=== PATIENT | female | born 1975 | race Caucasian/White ===

== ENCOUNTER → 2016-09-21 | Outpatient (CLI) | payer OTHER ==
[~2016-09-21] MED LIST: CHOL20002 PO; MULT-236 PO; TERBINAFINE PO
== END | disposition home or self-care (01) ==
LOC: LAB 17:03
PROVIDERS: ATTEND Obstetrics & Gynecology
DX: Z01.818 Encounter for other preprocedural examination (principal)

== ENCOUNTER 2016-09-23 05:46 | Inpatient (IN) | payer OTHER ==
[2016-09-23] VITALS (16 sets, daily range): BP systolic 84–123; BP diastolic 47–69; PULSE 64–91; RESP 15–22; Ht 154.9 cm; Wt 73.6 kg
[~2016-09-23] VITALS: Ht 154.9 cm; Wt 73.6 kg
--- NOTE | 2016-09-23 06:56 | PREOPHP ---
DATE OF ADMISSION: 09/23/2016 HISTORY OF PRESENT ILLNESS: This is a 41-year-old lady, 4, para 2 with 1 ectopic and 1 spon taneous . Her last normal menstrual period was a few days prior to admission. She was admi tted for D and C, hysteroscopy, possible suction curettage, exploratory laparotomy, and myomectomy. This patient complains of very heavy menstrual period associated with blood clots for the last few months and getting worse up to the time of admission. The uterus showed endometrial thickening. Sh berhane also has a fibroid and wanted to have this fibroid removed. The procedures were explained to the patient, and she understood everything totally. The risks, benefits, and alternatives were discusse d with her as well. PAST PERSONAL HISTORY: No history of diabetes, TB, asthma. ALLERGIES: NO ALLERGIES. SOCIAL HISTORY: The patient does not smoke. She does not drink. MEDICATIONS: She takes vitamins. GYNECOLOGIC HISTORY: She had menarche at the age of 11, every 28 days interval, 3 to 4 days duratio n, and moderate in amount. FAMILY HISTORY: Father has diabetes. She is 4, para 2 with 2 normal deliveries and 1 ectop ic . PAST SURGICAL HISTORY: She had a cyst removed on the left breast in 1993 and 1995. She had a gallb ladder surgery in 2011. She had an ectopic in 2008. REVIEW OF SYSTEMS: CARDIOVASCULAR: No chest pains. RESPIRATORY: No cough. GASTROINTESTINAL: No diarrhea, no vomiting. GENITOURINARY: No dysuria. PHYSICAL EXAMINATION: GENERAL: Reveals a conscious coherent lady and in no acute distress. VITAL SIGNS: Her blood pressure 120/80, pulse rate 80 per minute, respirations 16 per minute. BREASTS, HEART, AND LUNGS: Within normal limits. ABDOMEN: Soft. No organomegaly. PELVIC: Revealed the cervix to be firm, uterus about 12 week size, and adnexa were negative for mas ses. RECTAL: Confirmed the pelvic findings. EXTREMITIES: No pedal edema. ADMITTING DIAGNOSES: 1. Menorrhagia. 2. Chronic pelvic pain. 3. Fibroid uterus, rule out endometrial hyperplasia. PLAN: The patient was planned to have the above procedure. Dictated By: PEREZ COURTNEY/ANGIE Conf#: [id number] DID#: [id number]
[2016-09-23] MEDS ORDERED: VASOPRESSIN 20 UNITS INJ ONE (07:15)
[2016-09-23] MEDS ORDERED: PROPOFOL 20 ML ONE (07:30)
[2016-09-23] MEDS ORDERED: ROCURONIUM 50 MG INJ ONE (07:30)
[2016-09-23] MEDS ORDERED: FENTAnyl 50 MCG/ML VIAL ONE (07:30)
[2016-09-23] MEDS ORDERED: MIDAZOLAM 1 MG/ML 2 ML INJ ONE ×2 (07:30→08:43)
[2016-09-23] MEDS ORDERED: morphine SULFATE/PF (10 MG/10 ML) INJ ONE (07:30)
[2016-09-23] MEDS ORDERED: CEFAZOLIN 1 GM INJ ONE (07:41)
[2016-09-23] MEDS ORDERED: PHENYLephrine (100 MCG/ML) 5ML SYG ONE ×2 (08:23→09:03)
[2016-09-23] MEDS ORDERED: ACETAMINOPHEN 1000MG/100ML IV 100 ML ONE (08:24)
[2016-09-23] MEDS ORDERED: KETOROLAC 30 MG INJ ONE (08:24)
[2016-09-23] MEDS ORDERED: DEXAMETHASONE 4 MG/ML 1 ML INJ ONE (08:24)
[2016-09-23] MEDS ORDERED: METOCLOPRAMIDE 10 MG INJ ONE (08:24)
[2016-09-23] MEDS ORDERED: ONDANSETRON 4 MG INJ ONE (08:24)
[2016-09-23] MEDS ORDERED: HYDROmorphONE 1 MG/ML SYG IV PRN ×2 (08:30)
[2016-09-23] MEDS ORDERED: morphine 2 MG INJ IV PRN (08:30)
[2016-09-23] MEDS ORDERED: NALOXONE (0.4 MG/ML) INJ IV PRN (08:30)
[2016-09-23] MEDS ORDERED: morphine 4 MG/ML VIAL IV PRN (08:30)
[2016-09-23] MEDS ORDERED: DIPHENHYDRAMINE 50 MG INJ IV PRN (08:30)
[2016-09-23] MEDS ORDERED: NALBUPHINE HCL (10 MG/1 ML) INJ IV PRN (08:30)
[2016-09-23] MEDS ORDERED: ONDANSETRON 4 MG INJ IV PRN ×3 (08:30→10:30)
[2016-09-23] MEDS ORDERED: KETOROLAC 30 MG INJ IV PRN (08:30)
[2016-09-23] MEDS ORDERED: GLYCOPYRROLATE 0.4 MG INJ ONE (08:44)
[2016-09-23] MEDS ORDERED: NEOSTIGMINE 3 MG/3 ML SYRINGE ONE ×2 (08:44→08:45)
[2016-09-23] MEDS ORDERED: EPHEDrine SULFATE 50 MG/5 ML SYG ONE (09:53)
[2016-09-23] MEDS ORDERED: EPHEDrine SULFATE 50 MG/5 ML SYG IV PRN (10:00)
[2016-09-23] MEDS ORDERED: OXYCODONE/ACETAMINOPHEN (5/325) TAB PO PRN ×2 (10:30)
[2016-09-23] MEDS: LACTATED RINGER'S 1,000 ML IV* SCH ×2 (10:39→18:39)
--- NOTE | 2016-09-23 11:27 | RADRPT ---
PROCEDURE: XR Abdomen. CLINICAL INDICATION: Abdomen pain. Intraoperative. Foreign body. TECHNIQUE: AP supine abdomen x-ray. COMPARISON: None. FINDINGS: The upper abdomen is not included on the image. There is no evidence of bowel obstruction. There is a Benjamin catheter in the bladder. There is no o ther radiopaque foreign body. There are no abnormal calcifications overlying the urinary tracts. The osseus structures are unremarkable. IMPRESSION: 1. Limited study. 2. Benjamin catheter bladder. 3. Otherwise unremarkable study. RPTAT: QQ .Freedom Vicente MD, MD Date Time Electronically viewed and signed by .Freedom Vicente MD, MD on 09/23/2016 11:27 .R/
[2016-09-24] VITALS (7 sets, daily range): BP systolic 97–108; BP diastolic 54–70; PULSE 74–79; RESP 18–20
[2016-09-24] MEDS: LACTATED RINGER'S 1,000 ML IV* SCH ×2 (02:40→10:46)
[2016-09-24] MEDS: MAGNESIUM HYDROXIDE 30ML CUP PO SCH ×2 (05:59→21:00)
[2016-09-24] MEDS ORDERED: BISACODYL 10 MG SUPP PR ONE ×3 (06:00→17:00)
[2016-09-24 06:29] LABS: ADD SCAN DIFF NO
--- NOTE | 2016-09-24 06:31 | OPR ---
DATE OF OPERATION: 09/23/2016 PREOPERATIVE DIAGNOSES: 1. Fibroid uterus. 2. Endometrial thickening. 3. Chronic pelvic pain. 4. Menorrhagia. POSTOPERATIVE DIAGNOSES: 1. Fibroid uterus. 2. Endometrial thickening. 3. Chronic pelvic pain. 4. Menorrhagia. 5. Severe pelvic and abdominal adhesions. SURGEON: Perez Rolon MD LEARNING FACILITATOR: Dr. Arriaza ANESTHESIA: General. OPERATION PERFORMED: Fractional dilatation and curettage, hysteroscopy, suction curettage, explorat ory laparotomy, multiple myomectomies, and laparotomy and lysis of severe pelvic and abdominal adhes ions. OPERATIVE TECHNIQUE: Under general anesthesia, the patient was prepped and draped in the usual [facility] ion for vaginal surgery. Pelvic exam under anesthesia revealed the cervix to be firm, uterus about 14 weeks' size and irregular. Then, the heavy weight vaginal retractor was put in place and the ant erior lip of the cervix was grasped with an Allis clamp. Endocervical dilatation up to Hegar 6 was proceeded. Uterus was sounded to about 4 inches. Then the hysteroscope was inserted inside the [place] r[place] cavity and the uterus was distended with normal saline. There were no polyps nor fibroids seen . Then endocervical curettage was performed, and a small amount of tissue was obtained. Endometria l curettage was performed, and a small amount of tissue was obtained. Suction tip size 7 was insert ed inside the uterine cavity and suction curettage was done. A small amount of tissue was obtained. Then the patient's legs were put down, and the patient was prepped and draped in the usual fashion for abdominal surgery. After checking for the effect of damaged tissue, a Pfannenstiel incision, 1 0 cm skin incision, was performed. The incision was carried from the skin up to the fascia. Upon o pening the skin up to the fascia, the small blood vessels were noted to be oozing and these were all cauterized. The fascia was opened transversely followed by splitting the muscles vertical and the peritoneum vertically. Upon opening the abdominal cavity, the omentum was noted to be attached all over the anterior parietal peritoneum. All these adhesions were lysed by sharp and blunt dissection . The uterus was noted to be about 14 weeks size and multiple fibroids were noted. The back of the uterus was noted to be attached to the cul-de-sac and all these adhesions were lysed by sharp and b marcell dissection. The self-retaining retractor was put in place, the bladder blade was put in place, the bowels were packed away from the operative field with the aid of 4 wet lap sponges. Bladder bl joey was put in place. The uterus was pulled out from the pelvic cavity with the aid of the francisaculu m. One fibroid that was noted measuring about 6 x 6 cm on the anterior fundal portion of the uterus . Then there were also cut 3 other fibroids that were noted, 2 more anteriorly on the right mid por tion of the uterus and 1 posteriorly. The 2 anterior were measuring about 4 x 4 cm, 3 x 3 cm, and t he one posteriorly was 2 x 2 cm. The fibroids were removed by infiltrating the serosa of the uterus with 20 units of Pitressin mixed in 100 mL of normal saline. Then an incision was performed at the serosa of the uterus and the fibroid was then ablated from the muscle of the uterus by sharp and bl unt dissection. Then the same fashion was done with 2 other fibroids anteriorly and 1 posteriorly. Then, the muscle of the uterus was excised, that the one that was stretched out from the fibroid. Then the muscle of the uterus was closed in 2 layers using 0 chromic, continuous suture was used, an d the third layer was closed with continuous suture with 0 chromic. Then, the 2 other incision of t he uterus were closed with a [id number] suture of 0 chromic. Then the back of the uterus, afte r enucleation of the fibroid, was closed with 1 [id number] suture with 2-0 chromic as well. Bl eeders were checked and there was no bleeding noted. The right tube and the right ovary were health y looking as well as with the left tube and the left ovary. Then after checking for any bleeders in which there were none, irrigation was done with about 200 mL of normal saline. Then, after irrigat ion, bleeders were checked and there was no bleeding noted. The uterus was wrapped with 2 Interceed . Then the uterus was put back to the pelvic cavity. Then, after correct sponge count, needle coun t, and instrument count as confirmed by the environmental compliance technician and stone operator, the abdomen was closed in the usual fashion using 0 Vicryl for the peritoneum, 0 Vicryl for the muscles, for the fascia 0 Vicryl continuous stitch was used followed by a few [id number] sutures for the subcutaneous tissue, it was closed with 3-0 Vicryl, and the skin was closed with 3-0 Vicryl, subcuticular suture was used. The patient tolerated the procedure well. Estimated blood loss about 200 mL. Vital signs were sta ble during and after the procedure. Dictated By: PEREZ COURTNEY/ANGIE Conf#: [id number] DID#: [id number]
[2016-09-24 06:41] LABS: BASOPHILS % 0.2 % (0.0-2.0); EOSINOPHILS % 0.2 % (0.0-7.0); HEMATOCRIT 31.5 % (37.0-47.0); HEMOGLOBIN 10.2 g/dl (12.0-16.0); LYMPHOCYTES # 2.3 10^3/ul (0.8-2.9); LYMPHOCYTES % 16.9 % (15.0-51.0); MEAN CORPUSCULAR HEMOGLOBIN 29.9 pg (29.0-33.0); MEAN CORPUSCULAR HGB CONC 32.4 g/dl (32.0-37.0); MEAN CORPUSCULAR VOLUME 92.4 fl (82.0-101.0); MONOCYTE # 0.9 10^3/ul (0.3-0.9); MONOCYTES % 6.6 % (0.0-11.0); NEUTROPHILS % 75.5 % (39.0-77.0); PLATELET COUNT 283 10^3/UL (140-415); RED BLOOD COUNT 3.41 10^6/ul (4.20-5.40); RED CELL DISTRIBUTION WIDTH 13.4 % (11.5-14.5); WHITE BLOOD COUNT 13.3 10^3/ul (4.8-10.8)
[2016-09-24 07:18] LABS: ALBUMIN 3.5 g/dl (3.3-4.9); ALBUMIN/GLOBULIN RATIO 1.52; BILIRUBIN,INDIRECT 0.5 mg/dl (0-1.1); BILIRUBIN,TOTAL 0.5 mg/dl (0.2-1.3); CALCIUM 8.3 mg/dl (8.4-10.2); CREATININE 0.64 mg/dl (0.44-1.00); POTASSIUM 3.9 mmol/L (3.5-5.1); TOTAL PROTEIN 5.8 g/dl (6.1-8.1)
[2016-09-24] MEDS ORDERED: OXYCODONE/ACETAMINOPHEN (5/325) TAB PO PRN (10:30)
[2016-09-24] MEDS: OXYCODONE/ACETAMINOPHEN (5/325) TAB PO PRN ×2 (16:14→23:42)
[2016-09-25 06:04] LABS: ADD SCAN DIFF NO
[2016-09-25 06:25] LABS: BASOPHILS % 0.4 % (0.0-2.0); EOSINOPHILS # 0.1 10^3/ul (0.0-0.5); EOSINOPHILS % 1.1 % (0.0-7.0); HEMATOCRIT 31.2 % (37.0-47.0); LYMPHOCYTES # 3.1 10^3/ul (0.8-2.9); LYMPHOCYTES % 27.2 % (15.0-51.0); MEAN CORPUSCULAR HEMOGLOBIN 29.1 pg (29.0-33.0); MEAN CORPUSCULAR HGB CONC 32.1 g/dl (32.0-37.0); MEAN CORPUSCULAR VOLUME 90.7 fl (82.0-101.0); MEAN PLATELET VOLUME 10.5 fl (7.4-10.4); MONOCYTE # 0.9 10^3/ul (0.3-0.9); MONOCYTES % 7.5 % (0.0-11.0); NEUTROPHIL # 7.2 10^3/ul (1.6-7.5); NEUTROPHILS % 63.4 % (39.0-77.0); PLATELET COUNT 273 10^3/UL (140-415); RED BLOOD COUNT 3.44 10^6/ul (4.20-5.40); RED CELL DISTRIBUTION WIDTH 13.9 % (11.5-14.5); WHITE BLOOD COUNT 11.4 10^3/ul (4.8-10.8)
[2016-09-25 06:42] LABS: CALCIUM 8.2 mg/dl (8.4-10.2); CREATININE 0.61 mg/dl (0.44-1.00); POTASSIUM 3.6 mmol/L (3.5-5.1)
[2016-09-25 07:41] VITALS: BP 115/65; RESP 18
[2016-09-25] MEDS: MAGNESIUM HYDROXIDE 30ML CUP PO SCH (08:24)
[2016-09-25 13:20] VITALS: BP 115/78
[2016-09-25] MEDS ORDERED: MAGNESIUM HYDROXIDE 30ML CUP PO ONE (16:30)
[2016-09-25] MEDS ORDERED: BISACODYL 10 MG SUPP PR ONE (16:30)
[2016-09-25 19:56] VITALS: BP 118/62; RESP 18
== END 2016-09-25 21:30 | disposition home or self-care (01) | DRG 743 ==
LOC: REC 05:46 → MS2 10:15
PROVIDERS: ADMIT Obstetrics & Gynecology; ATTEND Obstetrics & Gynecology
PROC: 0UDB8ZX Extraction of Endometrium, Via Natural or Artificial Opening Endoscopic, Diagnostic (ICD-10-PCS; 2016-09-23)
PROC: 0UN90ZZ Release Uterus, Open Approach (ICD-10-PCS; 2016-09-23)
PROC: 0DNS0ZZ (ICD-10-PCS; 2016-09-23)
PROC: 0UB90ZZ Excision of Uterus, Open Approach (ICD-10-PCS; principal; 2016-09-23 07:30)
DX: D25.9 Leiomyoma of uterus, unspecified (principal); G89.29 Other chronic pain; R10.2 Pelvic and perineal pain; N73.6 Female pelvic peritoneal adhesions (postinfective); N92.0 Excessive and frequent menstruation with regular cycle
CPT/HCPCS: 74000; 80048; 80053; 82962; 84702; 85025; 86850; 86900; 86901; 87086; 88305; J0131; J0690; J1100; J1885; J2250; J2274; J2370; J2405; J2710; J2765; J3010; J7120